=== PATIENT | female | born 1955 | race Caucasian/White ===

== ENCOUNTER 2018-09-23 10:38 | Emergency (ER) | payer BC, MEDICARE ==
[2018-09-23 11:16] VITALS: BP 157/80
[2018-09-23] MEDS ORDERED: Tetan/Diph/Pertus SYR(Tdap)* 0.5 ML SYR(BOOSTRIX) use SYR IM ONE (12:14)
--- NOTE | 2018-09-23 12:35 | UC ---
Laceration HPI - HPI Summary HPI Summary: right index finger laceration 2 cm just above PIP knuckle - History Of Current Complaint Chief Complaint: UCUpperExtremity Stated Complaint: FINGER LAC Time Seen by Provider: 09/23/18 12:30 Hx Obtained From: Patient Laceration Location: Finger - right index finger Mechanism Of Injury: Sharp Trauma Onset/Duration: Sudden Onset Pain Intensity: 2 Pain Scale Used: 0-10 Numeric Aggravating Factors: Nothing Related History: Dominant Hand Right - Allergies/Home Medications Allergies/Adverse Reactions: Allergies Allergy/AdvReac Type Severity Reaction Status Date / Time No Known Allergies Allergy Verified 09/23/18 11:15 PMH/Surg Hx/FS Hx/Imm Hx Previously Healthy: Yes - Surgical History Surgical History: Yes Surgery Procedure, Year, and Place: appendectomy. T&A - Family History Known Family History: Positive: None - Social History Occupation: Employed Full-time Lives: With Family Alcohol Use: Weekly Substance Use Type: None Smoking Status (MU): Never Smoked Tobacco - Immunization History Most Recent Tetanus Shot: unsure ---will update today Review of Systems All Other Systems Reviewed And Are Negative: Yes Constitutional: Positive: Negative Skin: Positive: Other - 2 cm laceration right index finger just above pip knuckle Eyes: Positive: Negative ENT: Positive: Negative Respiratory: Positive: Negative Cardiovascular: Positive: Negative Gastrointestinal: Positive: Negative Genitourinary: Positive: Negative Motor: Positive: Negative Neurovascular: Positive: Negative Musculoskeletal: Positive: Negative Neurological: Positive: Negative Psychological: Positive: Negative Is Patient Immunocompromised?: No Physical Exam Triage Information Reviewed: Yes Appearance: Well-Appearing, No Pain Distress, Well-Nourished Vital Signs: Initial Vital Signs Temp 98.2 F 09/23/18 11:12 Pulse 77 09/23/18 11:12 Resp 18 09/23/18 11:12 BP 157/80 09/23/18 11:12 Pulse Ox 97 09/23/18 11:12 Vital Signs Reviewed: Yes Eye Exam: Normal Eyes: Positive: Conjunctiva Clear ENT Exam: Normal ENT: Positive: Normal ENT inspection, Hearing grossly normal. Negative: Trismus , Muffled voice, Hoarse voice Dental Exam: Normal Neck exam: Normal Neck: Positive: Supple, Nontender, No Lymphadenopathy Respiratory Exam: Normal Respiratory: Positive: Chest non-tender, No respiratory distress, No accessory muscle use Cardiovascular Exam: Normal Cardiovascular: Positive: RRR, Pulses Normal, Brisk Capillary Refill Musculoskeletal Exam: Normal Musculoskeletal: Positive: Strength Intact, ROM Intact, No Edema Neurological Exam: Normal Neurological: Positive: Alert, Muscle Tone Normal Psychological Exam: Normal Skin: Positive: Other - 2 cm laceration just above pip knuckle right index finger Laceration Repair - Laceration Repair 1 Description: Linear Laceration Size After Repair: Length (cm) - 2, Width (mm) - 0 Modified For Repair: No Type Injection: Digital Anesthesia Used: 0.25% Marcaine Cleansing Completed Via Routine Prep: Yes Irrigation With Pressure Irrigation Device: Yes Closure Method: Single Layer - 7---number 5.0 nylon suture Re-Evaluation - Re-Evaluation First Eval Change: Improved - tolerated sutures well n/m/c intact distally before and after would well approximated no bleeding Laceration Course/Dx - Course/Dx Course Of Treatment: dressing, splint, suture removal in days, ibuprofen for pain - Diagnosis Provider Diagnosis: Tetanus-diphtheria vaccination administered at current visit, Laceration of right index finger, Suture of skin wound Discharge - Sign-Out/Discharge Documenting (check all that apply): Patient Departure All imaging exams completed and their final reports reviewed: No Studies - Discharge Plan Condition: Stable Disposition: HOME Patient Education Materials: Ibuprofen (By mouth), Care For Your Stitches (ED) , Finger Laceration (ED), Hypertension (ED) Referrals: Shante Mora MD [Primary Care Provider] - If Needed Additional Instructions: Sutures will be removed in 10 days either by your primary care or here at the urgent care - Billing Disposition and Condition Condition: STABLE Disposition: Home
[2018-09-23] MEDS ORDERED: Bupivacaine 0.25% SDV PF* 10 ML VIAL INJ ONE (12:36)
== END 2018-09-23 13:22 | disposition home or self-care (01) ==
LOC: UCEAST 10:38
DX: W45.8XXA Other foreign body or object entering through skin, initial encounter (principal); Y92.9 Unspecified place or not applicable; S61.210A Laceration without foreign body of right index finger without damage to nail, initial encounter; Z23 Encounter for immunization
CPT/HCPCS: 12001; 90471; 90715; 99211; G0463; J3490

== ENCOUNTER 2018-10-03 10:07 | Emergency (ER) | payer MEDICARE ==
[2018-10-03 10:36] VITALS: BP 142/51
--- NOTE | 2018-10-03 12:07 | UC ---
HPI Wound/Suture Re-check - HPI Summary HPI Summary: Pt presents to clinic for suture removal on right second finger. Sutures palced here 10 days ago. Pt denies any s/sx of infection at suture site. - History Of Current Complaint Chief Complaint: UCSkin Stated Complaint: STITCHES REMOVED Time Seen by Provider: 10/03/18 10:39 Hx Obtained From: Patient Onset/Duration: Sudden Onset, Lasting Days, Other - sutures intact. Severity: Mild Pain Intensity: 3 Pain Scale Used: 0-10 Numeric - Allergies/Home Medications Allergies/Adverse Reactions: Allergies Allergy/AdvReac Type Severity Reaction Status Date / Time No Known Allergies Allergy Verified 10/03/18 10:36 PMH/Surg Hx/FS Hx/Imm Hx Previously Healthy: Yes - Surgical History Surgical History: Yes Surgery Procedure, Year, and Place: appendectomy. T&A - Family History Known Family History: Positive: Cardiac Disease - Social History Occupation: Employed Full-time Lives: With Family Alcohol Use: Occasionally Substance Use Type: None Smoking Status (MU): Never Smoked Tobacco Have You Smoked in the Last Year: No - Immunization History Vaccination Up to Date: Yes Review of Systems All Other Systems Reviewed And Are Negative: Yes Constitutional: Positive: Negative Skin: Positive: Other - sutures intact right second finger Eyes: Positive: Negative ENT: Positive: Negative Respiratory: Positive: Negative Cardiovascular: Positive: Negative Gastrointestinal: Positive: Negative Genitourinary: Positive: Negative Motor: Positive: Decreased ROM - right index finger due to sutures in place Neurovascular: Positive: Negative Musculoskeletal: Positive: Negative Neurological: Positive: Negative Psychological: Positive: Negative Is Patient Immunocompromised?: No Physical Exam Triage Information Reviewed: Yes Appearance: Well-Appearing Vital Signs: Initial Vital Signs Temp 97.8 F 10/03/18 10:33 Pulse 79 10/03/18 10:33 Resp 18 10/03/18 10:33 BP 142/51 10/03/18 10:33 Pulse Ox 99 10/03/18 10:33 Vital Signs Reviewed: Yes Eye Exam: Normal ENT: Positive: Hearing grossly normal Dental Exam: Normal Neck exam: Normal Respiratory: Positive: No respiratory distress Musculoskeletal: Positive: Strength Intact, ROM Intact Neurological Exam: Normal Psychological Exam: Normal Skin Exam: Other - six sutures intact right second finger dorsal aspect, no drainage, no tenderness, no erythema, all 6 sutures intact and removed. laceration site at mip joint, steri strips and skin adhesive applied and finger placed in finger splint to prevent reopening of laceration with activity at patients request. Course/Dx - Differential Dx - Laceration/Wound Differential Diagnoses: Healing Wound, Suture Removal - Diagnosis Provider Diagnosis: Visit for suture removal Discharge - Sign-Out/Discharge Documenting (check all that apply): Patient Departure All imaging exams completed and their final reports reviewed: No Studies - Discharge Plan Condition: Stable Disposition: HOME Patient Education Materials: Skin Adhesive Care (ED), Steristrips (ED), Stitches Removal (ED) Referrals: Shante Mora MD [Primary Care Provider] - If Needed - Billing Disposition and Condition Condition: STABLE Disposition: Home
== END 2018-10-03 11:06 | disposition home or self-care (01) ==
LOC: UCEAST 10:07
DX: Z48.02 Encounter for removal of sutures (principal)